=== PATIENT | female | born 1990 | race Hispanic/Latino ===

== ENCOUNTER 2016-07-22 11:18 | Emergency (ER) | payer OTHER ==
[2016-07-22 12:38] LABS: BASO % 0.3 % (0.0-1.0); EOS # 0.1 K/mm3 (0.0-0.50); LARGE UNSTAINED CELL # 0.2 K/mm3 (0.0-0.4); LARGE UNSTAINED CELL % 1.8 % (0.0-4.0); LYMPH # 2.1 K/mm3 (1.5-6.5); LYMPH % 17.5 % (24.0-44.0); MEAN CORPUSCULAR HEMOGLOBIN 28.9 pg (27.0-33.0); MEAN CORPUSCULAR HGB CONC 34.1 g/dl (32.0-36.5); MEAN CORPUSCULAR VOLUME 84.8 fl (80.0-96.0); MONO # 0.7 K/mm3 (0.0-0.8); MONO % 5.5 % (0.0-5.0); NEUTROPHILS # 8.8 K/mm3 (1.8-7.7); NEUTROPHILS % 73.9 % (36.0-66.0); PLATELET COUNT, AUTOMATED 275 k/mm3 (150-450); RED CELL DISTRIBUTION WIDTH 11.3 % (11.5-14.5); WHITE BLOOD COUNT 11.9 K/mm3 (4.0-10.0)
--- NOTE | 2016-07-22 16:01 | EDDOCDS ---
Nurse's Notes [facility] Name: Kristin Driscoll Age: 26 yrs Sex: Female : 1990 Arrival Date: 07/22/2016 Time: 11:18 Bed I6 / 28 Private MD: Zhane [facility] Diagnosis: Abdominal and pelvic pain-LLQ Presentation: 07/22 11:20 Presenting complaint: Patient states: L lower quadrant pain, sharp, intermittent x 2 rs3 days. test positive. denies of vaginal bleeding/cramps/nausea/vomiting. Risk factors: the patient reports no vaginal bleeding. Adult Sepsis Screening: The patient does not have new or worsening altered mentation. Patient's respiratory rate is less than 22. Systolic blood pressure is greater than 100. Patient has a qSOFA score of 0- Negative Sepsis Screen. Suicide/Homicide risk assessment- the patient denies having any suicidal and/or homicidal ideations and does not present with any other emotional, behavioral or mental health complaints. Status: The patient is a dependent. Transition of care: patient was not received from another setting of care. 11:20 Acuity: PAULIE Level 3 rs3 11:20 Method Of Arrival: Walkin/Carried/Asstd rs3 Triage Assessment: 11:22 General: Appears in no apparent distress. Pain: Location: left lower quadrant. Pt rs3 Declines HIV testing. GI: Reports lower abdominal pain. 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 Vitamin 27 mg iron- 800 mcg Oral tab daily - PMHx: none; - PSHx: none; - Social history: Smoking status: Patient states was never smoker of tobacco. No barriers to communication noted, The patient speaks fluent Kyrgyz. - Family history: Not pertinent. - : The pt / caregiver states he / she is not on anticoagulants. Home medication list is obtained from the patient. - Exposure Risk Screening:: None identified. Screenin:58 Screening information is obtained from the patient. Fall risk: No risks identified. ms2 Assistance ADL's: requires no assistance with activities of daily living. Abuse/DV Screen: The patient / caregiver reports he/she is: not in a situation that causes fear, pain or injury. Nutritional screening: No deficits noted. Advance Directives: Currently, there is no health care proxy. There is no active DNR order. There is no living will. There is no Power of Assembler For Puller Over Hand. Advance directive information has not previously been placed in an [facility] medical record. Further advance directive information is declined. home support is adequate. Assessment: 11:57 General: Appears in no apparent distress. Pain: Pain currently is 5 out of 10 on a pain ms2 scale. Neurological: Level of Consciousness is awake, alert, obeys commands. Respiratory: No deficits noted. Airway is patent Respiratory effort is even, unlabored, Respiratory pattern is regular, symmetrical. GI: Abdomen is flat, non- distended. GI: Bowel sounds diminished in right upper quadrant, left upper quadrant, right lower quadrant and left lower quadrant Abd is soft X 4 quads Abd is tender to palpation in left upper quadrant and left lower quadrant. Derm: No deficits noted. Skin is pink, warm & dry. Musculoskeletal: Range of motion intact in all extremities. 13:24 Reassessment: Patient appears in no apparent distress at this time. Pain: Location: kr3 left lower quadrant Pain currently is 5 out of 10 on a pain scale. Respiratory: Respiratory effort is even, unlabored. Derm: Skin is pink, warm & dry. 14:25 General: Appears states 5 /10 discomfort . reports adequate pain control. quietly jmk awaiting arrival of physician. comfort measures offered.. 15:22 General: Appears in no apparent distress, Behavior is appropriate for age, cooperative, jmb Dr. Meade's in to see patient. NO voiced complaints at this time. . Neurological: Level of Consciousness is awake, alert, obeys commands, Oriented to person, place, time, Speech is normal, Facial symmetry appears normal, Facial symmetry: tongue is midline. Respiratory: Airway is patent Respiratory effort is even, unlabored, Respiratory pattern is regular, symmetrical. 15:50 General: Appears exam completed by straddle buggy operator.. jmk 15:59 General: Patient instructed on discharge instructions. Patient asked if there were any b questions regarding discharge, patient stated no. Patient signed discharge instructions. Patient discharged in stable condition.. Vital Signs: 11:20 BP 128 / 78; Pulse 83; Resp 18; Temp 96.9; Pulse Ox 100% ; Weight 58.51 kg; Height 5 elp ft. 3 in. (160.02 cm); 13:33 BP 119 / 70; Pulse 81; Resp 18; Temp 99.8(TE); Pulse Ox 100% on R/A; Pain 5/10; dem1 15:56 BP 127 / 86; Pulse 92; Resp 18; Temp 100.3(TE); Pulse Ox 100% on R/A; dem1 11:20 Body Mass Index 22.85 (58.51 kg, 160.02 cm) elp Vitals: 11:20 Log In Time: July 22, 2016 at 11:18. elp ED Course: 11:19 Patient visited by Taisha Lee PCA. elp 11:19 Zhane [facility] is Private Physician. elp 11:19 Patient moved to Waiting elp 11:20 Patient visited by Taisha Lee PCA. elp 11:20 Patient moved to Pre RCE elp 11:22 Triage Initiated rs3 11:52 Patient moved to Triage 3 ms2 11:58 The patient / caregiver is instructed regarding the plan of care and ED course. ms2 12:09 Catalino Choudhary PA-C is PHCP. cc10 12:09 Prabhakar Russell MD is Attending Physician. cc10 12:09 Patient visited by Catalino Choudhary PA-C. cc10 12:09 Patient visited by Catalino Choudhary PA-C. cc10 12:24 Rh Only Sent. ms2 12:24 Hcg, Serum Quantitative Sent. ms2 12:24 CBC with Diff Sent. ms2 12:26 Patient moved to TR1 ms2 12:32 Patient moved to Ultrasound am10 12:33 Patient name changed from Kristin\S\\S\Gallito Driscoll\S\ to Kristin\S\ \S\Gallito Driscoll. EDMS 12:42 [facility] Payment Agreement was scanned into [employer] and attached to record. lg 13:07 Patient moved to I6 28 cc10 13:33 Patient visited by Drea Edwards,LEYDI. kr3 13:34 Patient visited by Alexa Solano. dem1 14:29 Patient visited by Andre Dodson,LEYDI. darwink 15:22 Patient visited by Clayton Peraza,LEYDI. jmb 15:53 Yayo Macdonald MD is Referral Physician. cc10 15:57 Patient visited by Alexa Solano. dem1 15:59 No IV's were initiated during this patient's visit. No procedures done that require jmb assistance. Order Results: Lab Order: CBC with Diff; SPEC'M 07/22/16 12:18 Test: WHITE BLOOD COUNT; Value: 11.9; Range: 4.0-10.0; Abnormal: Above high normal; Units: K/mm3; Status: F Test: RED BLOOD COUNT; Value: 4.96; Range: 4.00-5.40; Units: M/mm3; Status: F Test: HEMOGLOBIN; Value: 14.3; Range: 12.0-16.0; Units: g/dl; Status: F Test: HEMATOCRIT; Value: 42.1; Range: 36.0-47.0; Units: %; Status: F Test: MEAN CORPUSCULAR VOLUME; Value: 84.8; Range: 80.0-96.0; Units: fl; Status: F Test: MEAN CORPUSCULAR HEMOGLOBIN; Value: 28.9; Range: 27.0-33.0; Units: pg; Status: F Test: MEAN CORPUSCULAR HGB CONC; Value: 34.1; Range: 32.0-36.5; Units: g/dl; Status: F Test: RED CELL DISTRIBUTION WIDTH; Value: 11.3; Range: 11.5-14.5; Abnormal: Below low normal; Units: %; Status: F Test: PLATELET COUNT, AUTOMATED; Value: 275; Range: 150-450; Units: k/mm3; Status: F Test: NEUTROPHILS %; Value: 73.9; Range: 36.0-66.0; Abnormal: Above high normal; Units: %; Status: F Test: LYMPH %; Value: 17.5; Range: 24.0-44.0; Abnormal: Below low normal; Units: %; Status: F Test: MONO %; Value: 5.5; Range: 0.0-5.0; Abnormal: Above high normal; Units: %; Status: F Test: EOS %; Value: 1.0; Range: 0.0-3.0; Units: %; Status: F Test: BASO %; Value: 0.3; Range: 0.0-1.0; Units: %; Status: F Test: LARGE UNSTAINED CELL %; Value: 1.8; Range: 0.0-4.0; Units: %; Status: F Test: NEUTROPHILS #; Value: 8.8; Range: 1.8-7.7; Abnormal: Above high normal; Units: K/mm3; Status: F Test: LYMPH #; Value: 2.1; Range: 1.5-6.5; Units: K/mm3; Status: F Test: MONO #; Value: 0.7; Range: 0.0-0.8; Units: K/mm3; Status: F Test: EOS #; Value: 0.1; Range: 0.0-0.50; Units: K/mm3; Status: F Test: BASO #; Value: 0.0; Range: 0.0-0.2; Units: K/mm3; Status: F Test: LARGE UNSTAINED CELL #; Value: 0.2; Range: 0.0-0.4; Units: K/mm3; Status: F Lab Order: Hcg, Serum Quantitative; SPEC'M 07/22/16 12:18 Test: HCG, SERUM QUANTITATIVE; Value: 14482; Units: MIU/ML; Status: F Test Note: ; GESTATIONAL AGE APPROXIMATE HCG RANGE (MIU/ML) 0.2-1 WEEK 5-50 1-2 WEEKS 50-500 2-3 WEEKS 100-5,000 3-4 WEEKS 500-10,000 4-5 WEEKS 1,000-50,000 5-6 WEEKS 10,000-100,000 6-8 WEEKS 15,000-200,000 2-3 MONTHS 10,000-100,000 NON FEMALES LESS THAN 3.0 Patient samples may contain human heterophilic antibodies that could react with immunoassays to give falsely elevated or depressed results. This assay has been designed to minimize interference from heterophilic antibodies. Elevated hCG levels have also been associated with trophoblastic disease and nontrophoblastic neoplasms. The possibility of having these diseases should be considered before a diagnosis of is made. This test is not intended for use as a surrogate marker for aiding in the diagnosis or monitoring the treatment of cancer patients. [employer] methodology. Lab Order: UA; SPEC'M 07/22/16 12:18 Test: APPEARANCE, URINE; Value: CLEAR; Range: CLEAR; Status: F Test: COLOR, URINE; Value: STRAW; Range: YELLOW; Status: F Test: PH,URINE; Value: 8.0; Range: 5.0-9.0; Units: UNITS; Status: F Test: SPECIFIC GRAVITY URINE AUTO; Value: 1.008; Range: 1.002-1.035; Status: F Test: PROTEIN, URINE AUTO; Value: NEGATIVE; Range: NEGATIVE; Units: mg/dL; Status: F Test: GLUCOSE, URINE (UA) AUTO; Value: NEGATIVE; Range: NEGATIVE; Units: mg/dL; Status: F Test: KETONE, URINE AUTO; Value: NEGATIVE; Range: NEGATIVE; Units: mg/dL; Status: F Test: UROBILINOGEN, URINE AUTO; Value: 0.2; Range: 0.0-2.0; Units: mg/dL; Status: F Test: BILIRUBIN, URINE AUTO; Value: NEGATIVE; Range: NEGATIVE; Status: F Test: NITRITE, URINE AUTO; Value: NEGATIVE; Range: NEGATIVE; Status: F Test: LEUKOCYTE ESTERASE, URINE AUTO; Value: NEGATIVE; Range: NEGATIVE; Status: F Test: BLOOD, URINE BLOOD; Value: NEGATIVE; Range: NEGATIVE; Status: F Test: WBC, URINE AUTO; Value: 1; Range: 0-3; Units: /HPF; Status: F Test: RBC, URINE AUTO; Value: 2; Range: 0-3; Units: /HPF; Status: F Test: BACTERIA, URINE AUTO; Value: 2+; Range: NEGATIVE; Abnormal: Above high normal; Status: F Test: SQUAMOUS EPITHELIAL CELL UR AU; Value: 1; Range: 0-6; Units: /HPF; Status: F Test: HYALINE CAST, URINE AUTO; Value: 0; Range: 0-1; Units: /LPF; Status: F Lab Order: Rh Only; SPEC'M 07/22/16 12:18 Test: RH; Value: NEGATIVE; Status: F Outcome: 13:26 Ultrasound Study completed. kr3 15:53 Discharge ordered by Provider. cc10 15:59 Discharge Assessment: Patient awake, alert and oriented x 3. No cognitive and/or jmb functional deficits noted. Patient verbalized understanding of disposition instructions. Patient awake and alert. obeys commands, Oriented to person, place and time. Patient verbalized understanding of disposition instructions. Patient has no functional deficits. Discharge Assessment: patient administered narcotics - no. The following High Risk Discharge criteria are identified: None. Discharged to home ambulatory, with significant other. Condition: stable Condition: improved. Discharge instructions given to patient, Instructed on discharge instructions, follow up and referral plans. Demonstrated understanding of instructions, Pt was receptive of discharge instructions/ teaching. Property sent home with patient. 16:00 Patient left the ED. bhargav Signatures: Dispatcher [employer] EDMS Rohit Hatfield,RN RN ms2 Andre Dodson,RN RN Raven Perales Reg Reg lg Robie, Kathleen,RN RN kr3 Nicolette Torres am10 Kiley Burrows,RN RN rs3 Alexa Solano dem1 Taisha Lee, CERTIFIED PERSONAL FINANCE COUNSELOR CERTIFIED PERSONAL FINANCE COUNSELOR héctorp Clayton Peraza RN RN jmb Coniski, Colin, PA-C PA-C cc10 Corrections: (The following items were deleted from the chart) 14:29 14:25 General: Appears states 5 /10 discomfort . reports adequate pain control. quietly jmk awaiting arrival. jmk MTDD
--- NOTE | 2016-07-22 16:01 | EDDOCDS ---
Physician Documentation [facility] Name: Kristin Driscoll Age: 26 yrs Sex: Female : 1990 Arrival Date: 07/22/2016 Time: 11:18 Bed I6 / 28 Private MD: Zhane [facility] Disposition: 07/22/16 15:53 Discharged to Home/Self Care. Impression: Abdominal and pelvic pain - LLQ. - Condition is Stable. - Discharge Instructions: Threatened Miscarriage. - Medication Reconciliation, Family Work Release form. - Follow up: Emergency Department; When: As needed. Follow up: Yaoy Macdonald MD; When: 2 - 3 days; Reason: Wound/Symptom Recheck, Recheck today's complaints, Worsening of conditions, Continuance of care. - Problem is new. - Symptoms are unchanged. - Notes: Please follow up with Dr. Macdonald on Monday as directed. Return to the ER for any new or worse symptoms. May take tylenol as needed for pain. Historical: - Allergies: no known allergies; - Home Meds: 1. Vitamin 27 mg iron- 800 mcg Oral tab daily - PMHx: none; - PSHx: none; - Social history: Smoking status: Patient states was never smoker of tobacco. No barriers to communication noted, The patient speaks fluent New Zealander. - Family history: Not pertinent. - : The pt / caregiver states he / she is not on anticoagulants. Home medication list is obtained from the patient. - Exposure Risk Screening:: None identified. 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 3 in. (160.02 cm); 13:33 BP 119 / 70; Pulse 81; Resp 18; Temp 99.8(TE); Pulse Ox 100% on R/A; Pain 5/10; dem1 15:56 BP 127 / 86; Pulse 92; Resp 18; Temp 100.3(TE); Pulse Ox 100% on R/A; dem1 11:20 Body Mass Index 22.85 (58.51 kg, 160.02 cm) elp MDM: 12:14 CBC with Diff Ordered. EDMS 12:14 Hcg, Serum Quantitative Ordered. EDMS 12:14 UA Ordered. EDMS 12:14 Rh Only Ordered. EDMS 12:16 US 1st trimester Ordered. EDMS 12:38 Financial registration complete. mm15 12:42 [facility] Payment Agreement was scanned into [employer] and attached to record. lg 13:14 CBC with Diff Reviewed. cc10 13:14 UA Reviewed. cc10 13:14 Hcg, Serum Quantitative Reviewed. cc10 13:14 Rh Only Reviewed. cc10 13:17 TRANSVAGINAL US Ordered. EDMS 13:17 DUPLEX SCAN LIMITED (DOPPLER) Ordered. EDMS 13:31 Vital Signs ordered. cc10 Signatures: Dispatcher [employer] EDRaven Valenzuela, Reg Reg lg Kiley Burrows,LEYDI RN rs3 Mary Andersen mm15 Clayton Peraza RN RN Catalino Leyva, PA-Adina PA-C cc10 The chart was reviewed and I authenticate all verbal orders and agree with the evaluation and treatment provided.Attachments: 12:42 [facility] Payment Agreement lg MTDD
--- NOTE | 2016-07-23 21:53 | REP ---
First trimester OB ultrasound 07/22/2016 Indication: Left lower quadrant pain for 2 days, abdominal pain Comparison: None Date of last menstrual period 06/17/2017. Based on last menstrual period fetus should be 0-gznx-3-day gestational age the patient is G1, P 0 Study was performed transabdominally and transvaginally. Uterus measures 7.6 x 5.0 x 5.4 cm. There is a cystic structure within the endometrium most compatible with gestational sac containing a small yolk sac. There is no visualized subchorionic hemorrhage. Additionally there is fluid in region of left adnexa. This fluid does contains some debris and some residual echogenic tissue which could represent hematoma/clot, retained products of conception, complex cyst contents, previous ruptured ectopic as well as a small dependent cystic structure of 5 mm resembling a yolk sac . The right ovary is 5.1 x 2.2 x 4.5 cm and contains a 2.8 x 2.1 x 2.6 cm hemorrhagic cyst. Left ovary measures 2.1 x 2 x 1.9 cm contains small follicles. Perfusion is noted to the bilateral ovaries Impression 1. Small intrauterine gestational sac and yolk sac size of 9.6 mm corresponds to 8-zjdo-9-day gestational age. Recommend serial quantitative beta HCG and follow-up OB ultrasound to ensure a viable intrauterine 2. Moderate fluid within the left adnexal region as well as 3 mm cystic structure and some areas of clot or retained products of conception within the left adnexal region( may be remnants of a complex adnexal cyst). This could represent ruptured ovarian cyst, and / or retained products of conception from a prior ruptured left ectopic Recommend : correlation with serial quantitative beta HCG and follow-up pelvic ultrasound, and FINISHED METAL REPAIRER follow-up. 3. Bilateral ovaries without torsion Case discussed with SUNITHA Choudhary in ED on 07/22/16. Signed by Juana Gray MD 07/23/2016 09:45 P
--- NOTE | 2016-07-24 17:01 | EDDOCDS ---
Physician Documentation [facility] Name: Kristin Driscoll Age: 26 yrs Sex: Female : 1990 Arrival Date: 07/22/2016 Time: 11:18 Bed I6 / 28 Private MD: Zhane [facility] Disposition: 07/22/16 15:53 Discharged to Home/Self Care. Impression: Abdominal and pelvic pain - LLQ. - Condition is Stable. - Discharge Instructions: Threatened Miscarriage. - Medication Reconciliation, Family Work Release form. - Follow up: Emergency Department; When: As needed. Follow up: Yayo Macdonald MD; When: 2 - 3 days; Reason: Wound/Symptom Recheck, Recheck today's complaints, Worsening of conditions, Continuance of care. - Problem is new. - Symptoms are unchanged. - Notes: Please follow up with Dr. Macdonald on Monday as directed. Return to the ER for any new or worse symptoms. May take tylenol as needed for pain. Historical: - Allergies: no known allergies; - Home Meds: 1. Vitamin 27 mg iron- 800 mcg Oral tab daily - PMHx: none; - PSHx: none; - Social history: Smoking status: Patient states was never smoker of tobacco. No barriers to communication noted, The patient speaks fluent Cambodian. - Family history: Not pertinent. - : The pt / caregiver states he / she is not on anticoagulants. Home medication list is obtained from the patient. - Exposure Risk Screening:: None identified. 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 3 in. (160.02 cm); 13:33 BP 119 / 70; Pulse 81; Resp 18; Temp 99.8(TE); Pulse Ox 100% on R/A; Pain 5/10; dem1 15:56 BP 127 / 86; Pulse 92; Resp 18; Temp 100.3(TE); Pulse Ox 100% on R/A; dem1 11:20 Body Mass Index 22.85 (58.51 kg, 160.02 cm) elp MDM: 12:14 CBC with Diff Ordered. EDMS 12:14 Hcg, Serum Quantitative Ordered. EDMS 12:14 UA Ordered. EDMS 12:14 Rh Only Ordered. EDMS 12:16 US 1st trimester Ordered. EDMS 12:38 Financial registration complete. mm15 12:42 [facility] Payment Agreement was scanned into [employer] and attached to record. lg 13:14 CBC with Diff Reviewed. cc10 13:14 UA Reviewed. cc10 13:14 Hcg, Serum Quantitative Reviewed. cc10 13:14 Rh Only Reviewed. cc10 13:17 TRANSVAGINAL US Ordered. EDMS 13:17 DUPLEX SCAN LIMITED (DOPPLER) Ordered. EDMS 13:31 Vital Signs ordered. cc10 07/23 12:36 T-Sheet-- Draft Copy was scanned into [employer] and attached to record. gb 12:36 Radiology Report was scanned into [employer] and attached to record. gb Signatures: Dispatcher [employer] EDMS Rose Araya, Reg Reg gb Raven Poole, Reg Reg lg Kiley Burrows,RN RN rs3 Mary Andersen mm15 Clayton Peraza,RN RN Catalino Leyva, PAZulema PAMoC cc10 The chart was reviewed and I authenticate all verbal orders and agree with the evaluation and treatment provided.Attachments: 07/22 12:42 [facility] Payment Agreement lg 07/23 12:36 T-Sheet-- Draft Copy gb Chart Complete MTDD
--- NOTE | 2016-07-24 17:02 | EDDOCDS ---
Physician Documentation [facility] Name: Kristin Driscoll Age: 26 yrs Sex: Female : 1990 Arrival Date: 07/22/2016 Time: 11:18 Bed I6 / 28 Private MD: Zhane [facility] Disposition: 07/22/16 15:53 Discharged to Home/Self Care. Impression: Abdominal and pelvic pain - LLQ. - Condition is Stable. - Discharge Instructions: Threatened Miscarriage. - Medication Reconciliation, Family Work Release form. - Follow up: Emergency Department; When: As needed. Follow up: Yayo Macdonald MD; When: 2 - 3 days; Reason: Wound/Symptom Recheck, Recheck today's complaints, Worsening of conditions, Continuance of care. - Problem is new. - Symptoms are unchanged. - Notes: Please follow up with Dr. Macdonald on Monday as directed. Return to the ER for any new or worse symptoms. May take tylenol as needed for pain. Historical: - Allergies: no known allergies; - Home Meds: 1. Vitamin 27 mg iron- 800 mcg Oral tab daily - PMHx: none; - PSHx: none; - Social history: Smoking status: Patient states was never smoker of tobacco. No barriers to communication noted, The patient speaks fluent Paraguayan. - Family history: Not pertinent. - : The pt / caregiver states he / she is not on anticoagulants. Home medication list is obtained from the patient. - Exposure Risk Screening:: None identified. 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 3 in. (160.02 cm); 13:33 BP 119 / 70; Pulse 81; Resp 18; Temp 99.8(TE); Pulse Ox 100% on R/A; Pain 5/10; dem1 15:56 BP 127 / 86; Pulse 92; Resp 18; Temp 100.3(TE); Pulse Ox 100% on R/A; dem1 11:20 Body Mass Index 22.85 (58.51 kg, 160.02 cm) elp MDM: 12:14 CBC with Diff Ordered. EDMS 12:14 Hcg, Serum Quantitative Ordered. EDMS 12:14 UA Ordered. EDMS 12:14 Rh Only Ordered. EDMS 12:16 US 1st trimester Ordered. EDMS 12:38 Financial registration complete. mm15 12:42 [facility] Payment Agreement was scanned into [employer] and attached to record. lg 13:14 CBC with Diff Reviewed. cc10 13:14 UA Reviewed. cc10 13:14 Hcg, Serum Quantitative Reviewed. cc10 13:14 Rh Only Reviewed. cc10 13:17 TRANSVAGINAL US Ordered. EDMS 13:17 DUPLEX SCAN LIMITED (DOPPLER) Ordered. EDMS 13:31 Vital Signs ordered. cc10 07/23 12:36 T-Sheet-- Draft Copy was scanned into [employer] and attached to record. gb 12:36 Radiology Report was scanned into [employer] and attached to record. gb Signatures: Dispatcher [employer] EDMS Rose Araya, Reg Reg gb Raven Poole, Reg Reg lg Kiley Burrows,RN RN rs3 Mary Andersen mm15 Clayton Peraza,RN RN Catalino Leyva, PAZulema PAMoC cc10 The chart was reviewed and I authenticate all verbal orders and agree with the evaluation and treatment provided.Attachments: 07/22 12:42 [facility] Payment Agreement lg 07/23 12:36 T-Sheet-- Draft Copy gb Chart Complete MTDD
--- NOTE | 2016-07-24 17:02 | EDDOCDS ---
Nurse's Notes [facility] Name: Kristin Driscoll Age: 26 yrs Sex: Female : 1990 Arrival Date: 07/22/2016 Time: 11:18 Bed I6 / 28 Private MD: [facility] Diagnosis: Abdominal and pelvic pain-LLQ Presentation: 07/22 11:20 Presenting complaint: Patient states: L lower quadrant pain, sharp, intermittent x 2 rs3 days. test positive. denies of vaginal bleeding/cramps/nausea/vomiting. Risk factors: the patient reports no vaginal bleeding. Adult Sepsis Screening: The patient does not have new or worsening altered mentation. Patient's respiratory rate is less than 22. Systolic blood pressure is greater than 100. Patient has a qSOFA score of 0- Negative Sepsis Screen. Suicide/Homicide risk assessment- the patient denies having any suicidal and/or homicidal ideations and does not present with any other emotional, behavioral or mental health complaints. Status: The patient is a dependent. Transition of care: patient was not received from another setting of care. 11:20 Acuity: PAULIE Level 3 rs3 11:20 Method Of Arrival: Walkin/Carried/Asstd rs3 Triage Assessment: 11:22 General: Appears in no apparent distress. Pain: Location: left lower quadrant. Pt rs3 Declines HIV testing. GI: Reports lower abdominal pain. 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 Vitamin 27 mg iron- 800 mcg Oral tab daily - PMHx: none; - PSHx: none; - Social history: Smoking status: Patient states was never smoker of tobacco. No barriers to communication noted, The patient speaks fluent Czech. - Family history: Not pertinent. - : The pt / caregiver states he / she is not on anticoagulants. Home medication list is obtained from the patient. - Exposure Risk Screening:: None identified. Screenin:58 Screening information is obtained from the patient. Fall risk: No risks identified. ms2 Assistance ADL's: requires no assistance with activities of daily living. Abuse/DV Screen: The patient / caregiver reports he/she is: not in a situation that causes fear, pain or injury. Nutritional screening: No deficits noted. Advance Directives: Currently, there is no health care proxy. There is no active DNR order. There is no living will. There is no Power of Sample Examiner. Advance directive information has not previously been placed in an [facility] medical record. Further advance directive information is declined. home support is adequate. Assessment: 11:57 General: Appears in no apparent distress. Pain: Pain currently is 5 out of 10 on a pain ms2 scale. Neurological: Level of Consciousness is awake, alert, obeys commands. Respiratory: No deficits noted. Airway is patent Respiratory effort is even, unlabored, Respiratory pattern is regular, symmetrical. GI: Abdomen is flat, non- distended. GI: Bowel sounds diminished in right upper quadrant, left upper quadrant, right lower quadrant and left lower quadrant Abd is soft X 4 quads Abd is tender to palpation in left upper quadrant and left lower quadrant. Derm: No deficits noted. Skin is pink, warm & dry. Musculoskeletal: Range of motion intact in all extremities. 13:24 Reassessment: Patient appears in no apparent distress at this time. Pain: Location: kr3 left lower quadrant Pain currently is 5 out of 10 on a pain scale. Respiratory: Respiratory effort is even, unlabored. Derm: Skin is pink, warm & dry. 14:25 General: Appears states 5 /10 discomfort . reports adequate pain control. quietly jmk awaiting arrival of physician. comfort measures offered.. 15:22 General: Appears in no apparent distress, Behavior is appropriate for age, cooperative, jmb Dr. Meade's in to see patient. NO voiced complaints at this time. . Neurological: Level of Consciousness is awake, alert, obeys commands, Oriented to person, place, time, Speech is normal, Facial symmetry appears normal, Facial symmetry: tongue is midline. Respiratory: Airway is patent Respiratory effort is even, unlabored, Respiratory pattern is regular, symmetrical. 15:50 General: Appears exam completed by aba tutor.. jmk 15:59 General: Patient instructed on discharge instructions. Patient asked if there were any b questions regarding discharge, patient stated no. Patient signed discharge instructions. Patient discharged in stable condition.. Vital Signs: 11:20 BP 128 / 78; Pulse 83; Resp 18; Temp 96.9; Pulse Ox 100% ; Weight 58.51 kg; Height 5 elp ft. 3 in. (160.02 cm); 13:33 BP 119 / 70; Pulse 81; Resp 18; Temp 99.8(TE); Pulse Ox 100% on R/A; Pain 5/10; dem1 15:56 BP 127 / 86; Pulse 92; Resp 18; Temp 100.3(TE); Pulse Ox 100% on R/A; dem1 11:20 Body Mass Index 22.85 (58.51 kg, 160.02 cm) elp Vitals: 11:20 Log In Time: July 22, 2016 at 11:18. elp ED Course: 11:19 Patient visited by Taisha Lee PCA. elp 11:19 [facility] is Private Physician. elp 11:19 Patient moved to Waiting elp 11:20 Patient visited by Taisha Lee PCA. elp 11:20 Patient moved to Pre RCE elp 11:22 Triage Initiated rs3 11:52 Patient moved to Triage 3 ms2 11:58 The patient / caregiver is instructed regarding the plan of care and ED course. ms2 12:09 Catalino Choudhary PA-C is PHCP. cc10 12:09 Prabhakar Russell MD is Attending Physician. cc10 12:09 Patient visited by Catalino Choudhary PA-C. cc10 12:09 Patient visited by Catalino Choudhary PA-C. cc10 12:24 Rh Only Sent. ms2 12:24 Hcg, Serum Quantitative Sent. ms2 12:24 CBC with Diff Sent. ms2 12:26 Patient moved to TR1 ms2 12:32 Patient moved to Ultrasound am10 12:33 Patient name changed from Kristin\S\\S\Gallito Driscoll\S\ to Kristin\S\ \S\Gallito Driscoll. EDMS 12:42 [facility] Payment Agreement was scanned into [employer] and attached to record. lg 13:07 Patient moved to I6 28 cc10 13:33 Patient visited by Drea Edwards,LEYDI. kr3 13:34 Patient visited by Alexa Solano. dem1 14:29 Patient visited by Andre Dodson,LEYDI. darwink 15:22 Patient visited by Clayton Peraza,LEYDI. jmb 15:53 Yayo Macdonald MD is Referral Physician. cc10 15:57 Patient visited by Alexa Solano. dem1 15:59 No IV's were initiated during this patient's visit. No procedures done that require jmb assistance. 07/23 12:36 T-Sheet-- Draft Copy was scanned into [employer] and attached to record. gb 12:36 Radiology Report was scanned into [email or web address] and attached to record. gb 22:02 US 1st trimester Returned. EDMS Order Results: Lab Order: CBC with Diff; SPEC'M 07/22/16 12:18 Test: WHITE BLOOD COUNT; Value: 11.9; Range: 4.0-10.0; Abnormal: Above high normal; Units: K/mm3; Status: F Test: RED BLOOD COUNT; Value: 4.96; Range: 4.00-5.40; Units: M/mm3; Status: F Test: HEMOGLOBIN; Value: 14.3; Range: 12.0-16.0; Units: g/dl; Status: F Test: HEMATOCRIT; Value: 42.1; Range: 36.0-47.0; Units: %; Status: F Test: MEAN CORPUSCULAR VOLUME; Value: 84.8; Range: 80.0-96.0; Units: fl; Status: F Test: MEAN CORPUSCULAR HEMOGLOBIN; Value: 28.9; Range: 27.0-33.0; Units: pg; Status: F Test: MEAN CORPUSCULAR HGB CONC; Value: 34.1; Range: 32.0-36.5; Units: g/dl; Status: F Test: RED CELL DISTRIBUTION WIDTH; Value: 11.3; Range: 11.5-14.5; Abnormal: Below low normal; Units: %; Status: F Test: PLATELET COUNT, AUTOMATED; Value: 275; Range: 150-450; Units: k/mm3; Status: F Test: NEUTROPHILS %; Value: 73.9; Range: 36.0-66.0; Abnormal: Above high normal; Units: %; Status: F Test: LYMPH %; Value: 17.5; Range: 24.0-44.0; Abnormal: Below low normal; Units: %; Status: F Test: MONO %; Value: 5.5; Range: 0.0-5.0; Abnormal: Above high normal; Units: %; Status: F Test: EOS %; Value: 1.0; Range: 0.0-3.0; Units: %; Status: F Test: BASO %; Value: 0.3; Range: 0.0-1.0; Units: %; Status: F Test: LARGE UNSTAINED CELL %; Value: 1.8; Range: 0.0-4.0; Units: %; Status: F Test: NEUTROPHILS #; Value: 8.8; Range: 1.8-7.7; Abnormal: Above high normal; Units: K/mm3; Status: F Test: LYMPH #; Value: 2.1; Range: 1.5-6.5; Units: K/mm3; Status: F Test: MONO #; Value: 0.7; Range: 0.0-0.8; Units: K/mm3; Status: F Test: EOS #; Value: 0.1; Range: 0.0-0.50; Units: K/mm3; Status: F Test: BASO #; Value: 0.0; Range: 0.0-0.2; Units: K/mm3; Status: F Test: LARGE UNSTAINED CELL #; Value: 0.2; Range: 0.0-0.4; Units: K/mm3; Status: F Lab Order: Hcg, Serum Quantitative; SPEC'M 07/22/16 12:18 Test: HCG, SERUM QUANTITATIVE; Value: 50368; Units: MIU/ML; Status: F Test Note: ; GESTATIONAL AGE APPROXIMATE HCG RANGE (MIU/ML) 0.2-1 WEEK 5-50 1-2 WEEKS 50-500 2-3 WEEKS 100-5,000 3-4 WEEKS 500-10,000 4-5 WEEKS 1,000-50,000 5-6 WEEKS 10,000-100,000 6-8 WEEKS 15,000-200,000 2-3 MONTHS 10,000-100,000 NON FEMALES LESS THAN 3.0 Patient samples may contain human heterophilic antibodies that could react with immunoassays to give falsely elevated or depressed results. This assay has been designed to minimize interference from heterophilic antibodies. Elevated hCG levels have also been associated with trophoblastic disease and nontrophoblastic neoplasms. The possibility of having these diseases should be considered before a diagnosis of is made. This test is not intended for use as a surrogate marker for aiding in the diagnosis or monitoring the treatment of cancer patients. [employer] methodology. Lab Order: UA; SPEC'M 07/22/16 12:18 Test: APPEARANCE, URINE; Value: CLEAR; Range: CLEAR; Status: F Test: COLOR, URINE; Value: STRAW; Range: YELLOW; Status: F Test: PH,URINE; Value: 8.0; Range: 5.0-9.0; Units: UNITS; Status: F Test: SPECIFIC GRAVITY URINE AUTO; Value: 1.008; Range: 1.002-1.035; Status: F Test: PROTEIN, URINE AUTO; Value: NEGATIVE; Range: NEGATIVE; Units: mg/dL; Status: F Test: GLUCOSE, URINE (UA) AUTO; Value: NEGATIVE; Range: NEGATIVE; Units: mg/dL; Status: F Test: KETONE, URINE AUTO; Value: NEGATIVE; Range: NEGATIVE; Units: mg/dL; Status: F Test: UROBILINOGEN, URINE AUTO; Value: 0.2; Range: 0.0-2.0; Units: mg/dL; Status: F Test: BILIRUBIN, URINE AUTO; Value: NEGATIVE; Range: NEGATIVE; Status: F Test: NITRITE, URINE AUTO; Value: NEGATIVE; Range: NEGATIVE; Status: F Test: LEUKOCYTE ESTERASE, URINE AUTO; Value: NEGATIVE; Range: NEGATIVE; Status: F Test: BLOOD, URINE BLOOD; Value: NEGATIVE; Range: NEGATIVE; Status: F Test: WBC, URINE AUTO; Value: 1; Range: 0-3; Units: /HPF; Status: F Test: RBC, URINE AUTO; Value: 2; Range: 0-3; Units: /HPF; Status: F Test: BACTERIA, URINE AUTO; Value: 2+; Range: NEGATIVE; Abnormal: Above high normal; Status: F Test: SQUAMOUS EPITHELIAL CELL UR AU; Value: 1; Range: 0-6; Units: /HPF; Status: F Test: HYALINE CAST, URINE AUTO; Value: 0; Range: 0-1; Units: /LPF; Status: F Lab Order: Rh Only; SPEC'M 07/22/16 12:18 Test: RH; Value: NEGATIVE; Status: F Radiology Order: US 1st trimester Test: US 1st trimester REASON FOR EXAMINATION: Abdomen Pain; First trimester OB ultrasound 07/22/2016; ; Indication: Left lower quadrant pain for 2 days, abdominal pain; ; Comparison: None; ; Date of last menstrual period 06/17/2017. Based on last menstrual period fetus; should be 9-ywzv-6-day gestational age the patient is G1, P 0; ; Study was performed transabdominally and transvaginally. Uterus measures 7.6 x; 5.0 x 5.4 cm. There is a cystic structure within the endometrium most compatible; with gestational sac containing a small yolk sac. There is no visualized; subchorionic hemorrhage. Additionally there is fluid in region of left adnexa.; This fluid does contains some debris and some residual echogenic tissue which; could represent hematoma/clot, retained products of conception, complex cyst; contents, previous ruptured ectopic as well as a small dependent cystic; structure of 5 mm resembling a yolk sac .; ; The right ovary is 5.1 x 2.2 x 4.5 cm and contains a 2.8 x 2.1 x 2.6 cm; hemorrhagic cyst.; ; Left ovary measures 2.1 x 2 x 1.9 cm contains small follicles. Perfusion is; noted to the bilateral ovaries; ; Impression; 1. Small intrauterine gestational sac and yolk sac size of 9.6 mm corresponds; to 2-kmtg-1-day gestational age. Recommend serial quantitative beta HCG and; follow-up OB ultrasound to ensure a viable intrauterine ; ; 2. Moderate fluid within the left adnexal region as well as 3 mm cystic; structure and some areas of clot or retained products of conception within the; left adnexal region( may be remnants of a complex adnexal cyst).; ; This could represent ruptured ovarian cyst, and / or retained products of; conception from a prior ruptured left ectopic ; ; Recommend : correlation with serial quantitative beta HCG and follow-up pelvic; ultrasound, and M[employer] [facility]MI[employer] follow-up.; ; 3. Bilateral ovaries without torsion; ; Case discussed with SUNITHA Choudhary in ED on 07/22/16.; ; ; Signed by; Juana Gray MD 07/23/2016 09:45 P; Outcome: 07/22 13:26 Ultrasound Study completed. kr3 15:53 Discharge ordered by Provider. cc10 15:59 Discharge Assessment: Patient awake, alert and oriented x 3. No cognitive and/or jmb functional deficits noted. Patient verbalized understanding of disposition instructions. Patient awake and alert. obeys commands, Oriented to person, place and time. Patient verbalized understanding of disposition instructions. Patient has no functional deficits. Discharge Assessment: patient administered narcotics - no. The following High Risk Discharge criteria are identified: None. Discharged to home ambulatory, with significant other. Condition: stable Condition: improved. Discharge instructions given to patient, Instructed on discharge instructions, follow up and referral plans. Demonstrated understanding of instructions, Pt was receptive of discharge instructions/ teaching. Property sent home with patient. 16:00 Patient left the ED. bhargav Signatures: Dispatcher [employer] EDMS Rohit Hatfield,RN RN ms2 Andre DodsonRN RN Rose Dumas, Reg Reg gb [place], [place], Reg Reg lg Drea Edwards,RN RN kr3 Nicolette Torres am10 Kiley Burrows,RN RN rs3 Alexa Solano dem1 Taisha Lee, CLIENT SERVER DEVELOPER CLIENT SERVER DEVELOPER héctorp Clayton Peraza,RN RN Catalino Leyva, PA-C PA-C cc10 Corrections: (The following items were deleted from the chart) 14:29 14:25 General: Appears states 5 /10 discomfort . reports adequate pain control. quietly jmk awaiting arrival. jmk Chart Complete MTDD
== END 2016-07-22 16:00 | disposition home or self-care (01) ==
LOC: M ED 11:18
DX: O26.891 Other specified pregnancy related conditions, first trimester (principal); R10.2 Pelvic and perineal pain; Z3A.01 Less than 8 weeks gestation of pregnancy

== ENCOUNTER 2017-03-18 21:08 | Outpatient (CLI) | payer OTHER ==
[~2017-03-18] VITALS: Ht 160 cm; Wt 72.0 kg
[2017-03-18 21:28] VITALS: BP 138/103
[2017-03-18 21:30] VITALS: BP 153/93
[2017-03-18 21:43] VITALS: BP 140/92
[2017-03-18 21:57] VITALS: BP 140/99
[2017-03-18 22:13] VITALS: BP 132/97
[2017-03-18 23:03] LABS: ALT/SGPT 25 U/L (12-78); AST/SGOT 21 U/L (15-37); BILIRUBIN,TOTAL 0.3 MG/DL (0.2-1.0); CREATININE FOR GFR 0.43 MG/DL (0.55-1.02); GLOMERULAR FILTRATION RATE > 60.0 (>60); URIC ACID 4.6 MG/DL (2.6-6.0)
[2017-03-19] MEDS ORDERED: NALBUPHINE HCL 10 MG/ML AMP (J2300) IV ONE (00:30)
[2017-03-19] MEDS ORDERED: PROMETHAZINE INJ 25 MG/ML VIAL (J2550) IV ONE (00:30)
== END 2017-03-19 05:26 | disposition home or self-care (01) ==
LOC: M LDO 21:08
PROVIDERS: ATTEND Obstetrics & Gynecology
DX: O47.1 False labor at or after 37 completed weeks of gestation (principal); Z3A.39 39 weeks gestation of pregnancy
CPT/HCPCS: 36415; 59025; 82247; 82565; 82570; 83615; 84156; 84450; 84460; 84550; J2300

== ENCOUNTER 2017-03-19 21:55 | Outpatient (CLI) | payer OTHER ==
[~2017-03-19] VITALS: Ht 160 cm; Wt 72.0 kg
[2017-03-19 22:07] VITALS: BP 132/89
[2017-03-19 22:31] VITALS: BP 132/73
== END 2017-03-19 22:40 | disposition home or self-care (01) ==
LOC: M LDO 21:55
PROVIDERS: ATTEND Obstetrics & Gynecology
DX: O47.1 False labor at or after 37 completed weeks of gestation (principal); Z3A.39 39 weeks gestation of pregnancy

== ENCOUNTER 2017-03-20 04:34 | Inpatient (IN) | payer OTHER ==
[~2017-03-20] VITALS: Ht 160 cm; Wt 73.0 kg
[2017-03-20] VITALS (21 sets, daily range): BP systolic 110–152; BP diastolic 57–103
[2017-03-20] MEDS ORDERED: OXYTOCIN 30 UNITS IN 0.9% NaCl 500ML IV BAG (J2590) As Ordered ONE (05:40)
[2017-03-20] MEDS ORDERED: LACTATED RINGER'S 1000 ML IV STA (05:44)
[2017-03-20 06:12] LABS: MEAN CORPUSCULAR HEMOGLOBIN 30.2 pg (27.0-33.0); MEAN CORPUSCULAR HGB CONC 35.8 g/dl (32.0-36.5); MEAN CORPUSCULAR VOLUME 84.5 fl (80.0-96.0); RED CELL DISTRIBUTION WIDTH 11.9 % (11.5-14.5); WHITE BLOOD COUNT 17.9 K/mm3 (4.0-10.0)
[2017-03-20] MEDS ORDERED: FENTANYL 2MCG/ML ROPIVACAINE 0.2% IN 0.9% NACL 200ML IVBAG As Ordered ONE (07:16)
[2017-03-20] MEDS ORDERED: EPIDURAL COMMENT XX SCH (08:30)
[2017-03-20] MEDS ORDERED: ePHEDrine SULFATE 25 MG/5 ML(5MG/ML) SYRINGE IV PRN (08:30)
[2017-03-20] MEDS ORDERED: EPIDURAL/PCA KEYS XX PRN (08:30)
[2017-03-20] MEDS ORDERED: diphenhydrAMINE INJ 50MG/ML VIAL (J1200) IV PRN (08:30)
[2017-03-20] MEDS ORDERED: FENTANYL/ROPIVACAINE/NACL BAG 200 ML EPIDURAL SCH (08:30)
[2017-03-20] MEDS ORDERED: ONDANSETRON 4MG/2ML VIAL (J2405) IV PRN ×2 (08:30→12:15)
[2017-03-20] MEDS ORDERED: NALOXONE INJ 0.4 MG/1 ML VIAL (J2310) IV PRN (08:30)
[2017-03-20] MEDS ORDERED: LACTATED RINGER'S 1000 ML IV PRN (08:30)
[2017-03-20] MEDS ORDERED: REFRIGERATOR IV KEYS XX PRN (08:30)
[2017-03-20] MEDS ORDERED: RHOGAM 300 MCG (1500 IU) INJ (J2790) IM SCH (09:00)
[2017-03-20] MEDS ORDERED: MEASLES,MUMPS,RUBELLA VACCINE INJ (MMR-II) (90707) SC SCH (09:00)
[2017-03-20] MEDS ORDERED: DOCUSATE SODIUM 100 MG CAP PO PRN (12:15)
[2017-03-20] MEDS ORDERED: ANUSOL HC CREAM 30GM TOP PRN (12:15)
[2017-03-20] MEDS ORDERED: ACETAMINOPHEN TAB 650MG DOSE (2X325MG) PO PRN (12:15)
[2017-03-20] MEDS ORDERED: DIBUCAINE 1% OINTMENT 30GM TOP PRN (12:15)
[2017-03-20] MEDS ORDERED: IBUPROFEN 600 MG TAB PO PRN (12:15)
[2017-03-20] MEDS ORDERED: PROMETHAZINE 25 MG TAB PO PRN (12:15)
[2017-03-20] MEDS ORDERED: LIDOCAINE 1% MDV INJ 50 ML VIAL INFIL ONE (12:15)
[2017-03-20] MEDS ORDERED: MOM 30ML SUSPENSION UDC PO PRN (12:15)
[2017-03-20] MEDS ORDERED: METHYLERGONOVINE MALEATE 0.2 MG TAB PO PRN (12:15)
[2017-03-20] MEDS: PRENATAL VITAMINS CHEWABLE TABLET PO SCH (17:05)
[2017-03-21 06:05] VITALS: BP 117/63
--- NOTE | 2017-03-21 07:40 | IPNPDOC ---
Text Note Date of Service The patient was seen on 03/21/17. NOTE PPD1 prog note States feeling well, no complaints. No heavy VB. Pain controlled. Voiding, ambulatory. Bonding well and breast feeding well. VSSAF CTAB RRR Ut at U-2, firm Ext no CCE a/p: Doing well. routine PP care. Sessions VS,Swapnil, I+O VSSwapnil, I+O Vital Signs Date Time Temp Pulse Resp B/P (MAP) Pulse Ox O2 Delivery O2 Flow Rate FiO2 03/21/17 06:05 97.5 87 16 117/63 (81) 03/20/17 15:20 96 Room Air I&O- Last 24 Hours up to 6 AM 03/21/17 06:00 Output Total 350 ml Balance -350 ml SESSIONS,GENEVA Reyes MD Mar 21, 2017 07:40
[2017-03-21] MEDS: PRENATAL VITAMINS CHEWABLE TABLET PO SCH (07:44)
[2017-03-21 18:00] VITALS: BP 125/91
[2017-03-22 05:50] VITALS: BP 119/82
[2017-03-22] MEDS: PRENATAL VITAMINS CHEWABLE TABLET PO SCH (08:04)
[2017-03-22] MEDS ORDERED: IBUP-1114 PO (08:21)
[2017-03-22] MEDS ORDERED: ACET50TA PO (08:21)
[2017-03-22] MEDS ORDERED: COLA100C5 PO (08:21)
== END 2017-03-22 12:10 | disposition home or self-care (01) | DRG 775 ==
LOC: M LDO 04:34 → M LDI 05:47 → M OBS 15:19
PROVIDERS: ADMIT Obstetrics & Gynecology; ATTEND Obstetrics & Gynecology
PROC: 10E0XZZ Delivery of Products of Conception, External Approach (ICD-10-PCS; principal; 2017-03-20)
PROC: 0HQ9XZZ Repair Perineum Skin, External Approach (ICD-10-PCS; 2017-03-20)
DX: O70.0 First degree perineal laceration during delivery (principal); Z37.0 Single live birth; Z3A.39 39 weeks gestation of pregnancy

== ENCOUNTER 2017-05-19 21:39 | Emergency (ER) | payer OTHER ==
[~2017-05-19] VITALS: Ht 160 cm; Wt 60.9 kg
[~2017-05-19 21:39] MED LIST: ACET50TA PO; COLA100C5 PO; IBUP-1114 PO
--- NOTE | 2017-05-20 02:10 | REPUSA ---
CLINICAL HISTORY: Intrauterine device placement evaluation. TECHNIQUE: Multiple axial, sagittal and coronal CT images were obtained through the abdomen and pelvi s after administration of oral and intravenous contrast material. Images were obtained before and aft er IV contrast administration. COMMENTS: Intrauterine device in good position. Moderate amount of fecal residue in the large bowels. The liver is of uniform attenuation without mass or defect. There is no intra or extrahepatic biliary ductal dilatation. The spleen is normal. The gallbladder is within normal limits. The pancreas is of normal contour and attenuation characteristics. There is no evidence of adrenal mass. Both kidneys demonstrate prompt and equal nephrograms. The kidneys are normal in size, shape and conf iguration. There is no evidence of renal or ureteral mass. No renal or ureteral calculi are identifie d. There is no hydroureter or hydronephrosis. No evidence for appendicitis. There is no bowel wall thickening. No evidence for small or large naldo l obstruction. There is no evidence of abdominal ascites or lymphadenopathy. There is no evidence of intrinsic or extrinsic bladder mass. There is no pelvic ascites or lymphadeno darnell. Images of the lung bases show no evidence of pleural or parenchymal mass. There are no pleural effusi ons. The bony structures are free of lytic or blastic lesions. IMPRESSION: Intrauterine device in good position. Constipation. No evidence of acute abdominal or pelvic pathology. Thank you for your kind referral of this patient.
[2017-05-20] MEDS ORDERED: NORCO 5/325MG TABLET (BULK FOR ED) PO ONE (03:00)
[2017-05-20 03:14] VITALS: BP 112/77
== END 2017-05-20 03:18 | disposition home or self-care (01) ==
LOC: M ED 21:39
DX: R10.2 Pelvic and perineal pain (principal); Z97.5 Presence of (intrauterine) contraceptive device; K59.00 Constipation, unspecified

== ENCOUNTER 2018-01-19 14:39 | Emergency (ER) | payer OTHER ==
[2018-01-19] MEDS: NS 1,000 ML IV (15:20)
[2018-01-19 15:29] LABS: BASO # 0.1 10^3/uL (0.0-0.2); BASO % 0.5 % (0.0-1.0); EOS # 0.2 10^3/uL (0.0-0.50); EOS % 1.4 % (0.0-3.0); HEMATOCRIT 42.6 % (36.0-47.0); HEMOGLOBIN 14.3 g/dl (12.0-15.5); IMMATURE GRANULOCYTE % 0.6 % (0-3.0); LYMPH # 2.2 10^3/uL (1.5-6.5); LYMPH % 17.7 % (24.0-44.0); MEAN CORPUSCULAR HEMOGLOBIN 28.7 pg (27.0-33.0); MEAN CORPUSCULAR HGB CONC 33.6 g/dl (32.0-36.5); MEAN CORPUSCULAR VOLUME 85.5 fl (80.0-96.0); MONO % 7.8 % (0.0-5.0); PLATELET COUNT, AUTOMATED 325 10^3/uL (150-450); RED BLOOD COUNT 4.98 10^6/uL (4.00-5.40); RED CELL DISTRIBUTION WIDTH 11.4 % (11.5-14.5); WHITE BLOOD COUNT 12.5 10^3/uL (4.0-10.0)
[2018-01-19] MEDS: METOCLOPRAMIDE INJ 10MG/2ML VIAL (J2765) IV (15:30)
[2018-01-19 15:40] LABS: INR 0.96; PROTHROMBIN TIME 12.9 SECONDS (12.1-14.4)
[2018-01-19 15:41] LABS: CONTROL LINE HCG INT CTR LINE PRESENT; HCG, SERUM QUALITATIVE NEGATIVE (NEGATIVE)
[2018-01-19 15:51] LABS: ACETAMINOPHEN LEVEL < 2.0 UG/ML (10.0-30.0); ALBUMIN 4.1 GM/DL (3.2-5.2); ALBUMIN/GLOBULIN RATIO 0.91 (1.00-1.93); ALKALINE PHOSPHATASE 86 U/L (45-117); ALT/SGPT 33 U/L (12-78); ANION GAP 8 MEQ/L (8-16); AST/SGOT 30 U/L (7-37); BILIRUBIN,DIRECT 0.1 MG/DL (0.0-0.2); BILIRUBIN,TOTAL 0.6 MG/DL (0.2-1.0); BLOOD UREA NITROGEN 11 MG/DL (7-18); CALCIUM LEVEL 9.4 MG/DL (8.5-10.1); CARBON DIOXIDE LEVEL 26 MEQ/L (21-32); CHLORIDE LEVEL 106 MEQ/L (98-107); CPK CREATINE PHOSPHOKINASE 101 U/L (26-192); CREATININE FOR GFR 0.57 MG/DL (0.55-1.30); GLOMERULAR FILTRATION RATE > 60.0 (>60); GLUCOSE, FASTING 91 MG/DL (70-100); POTASSIUM SERUM 4.4 MEQ/L (3.5-5.1); SALICYLATE LEVEL < 1.7 MG/DL (5.0-30.0); SODIUM LEVEL 140 MEQ/L (136-145); TOTAL PROTEIN 8.6 GM/DL (6.4-8.2); TROPONIN I < 0.02 NG/ML (< 0.10)
[2018-01-19 15:52] LABS: CK-MB VALUE MASS < 1.0 NG/ML (<3.6); MB/CK RELATIVE INDEX 0.99 (< OR =4)
== END 2018-01-19 21:42 | disposition home or self-care (01) ==
LOC: M ED 14:39
DX: G62.9 Polyneuropathy, unspecified (principal)
CPT/HCPCS: J2765

== ENCOUNTER 2018-10-21 10:21 | Emergency (ER) | payer OTHER ==
[~2018-10-21] VITALS: Ht 162.6 cm; Wt 57.5 kg
[~2018-10-21 10:21] MED LIST changes: -ACET50TA PO; +MAPA500T2 PO
[2018-10-21] MEDS ORDERED: ERYT1OIN26 OP (12:04)
[2018-10-21 12:09] VITALS: BP 120/92
== END 2018-10-21 12:09 | disposition home or self-care (01) ==
LOC: M ED 10:21
DX: H10.33 Unspecified acute conjunctivitis, bilateral (principal); J30.2 Other seasonal allergic rhinitis